=== PATIENT | male | born 1990 | race Caucasian/White ===

== ENCOUNTER 2017-12-30 00:10 | Emergency (ER) | payer OTHER, SELFPAY ==
[2017-12-30 00:11] VITALS: BP 154/71; PULSE 69; RESP 15; TEMP 36.6; BMI 28.1
--- NOTE | 2017-12-30 00:26 | ED.DCSUM_ITS ---
- ER Visit Summary Date of Service: 12/30/17 Chief Complaint: Right hand laceration History of Present Illness: The patient is a 27 M [id number] and tetanus up-to-date within the last 5 years. No significant past medical history no prior surgery to his right hand. Patient was opening a wine bottle and was pushing the court into the wine bottle when the neck of the bottle shattered and he cut his right hand on the bottle. Denies any numbness. He has normal range of motion. Denies any other injuries. Physical Examination: Well-appearing young male. Vital signs are stable afebrile. H EENT exam unremarkable. Lungs clear to auscultation bilaterally. Heart regular rate and rhythm no murmur. Otherwise exam unremarkable except the right hand is a laceration of the palmar aspect of the right hand on the ulnar side. Currently bleeding is controlled but he has dried blood all over the hand. He also has a laceration on the dorsum of the right small finger near the DIP joint. He has full flexion-extension all digits of the right hand. He has normal touch sensation. There are no obvious tendon injuries. I do not feel any broken glass and I will explore both wounds thoroughly. There are no bony deformities. Test Results: None Emergency Department Course and Treatment: Procedure note: Right hand lacerations. Both wounds were cleaned thoroughly. Rosaura and then washed and explored. Both were locally anesthetized with 1% lidocaine. Both wounds were explored and I did not feel any pieces of glass or other foreign body. Right ulnar side palm laceration was 3 cm. Had a superficial arterial bleed. Washed and explored. Closed using 5 4-0 Ethilon simple interrupted sutures. Proper hemostasis wound closure was obtained. On reexamination there was no expanding hematoma. Right small finger laceration of the DIP joint. Involve the skin superficial subcutaneous tissue. Did not seem to involve the joint. No foreign bodies noted. Washed and explored. Closed using 3 simple interrupted 4-0 Ethilon sutures. Proper hemostasis wound closure was obtained. Patient was instructed on wound care and suture removal. Treatment Plan: Wound care. Suture removal in 10 days. Return if any signs of infection or expanding hematoma. Disposition: Discharge Impression: Right palm 3 cm laceration with ER repair. Right small finger DIP 2 cm laceration with ER repair. This note was generated with [employer] software. It may contain incorrect words, spelling, and punctuation that were not noted in review of the chart prior to signing ED Disposition - Plan for ED Patient: Chief Complaint: Laceration
--- NOTE | 2017-12-30 00:55 | ED.DEP ---
ED Disposition - Plan for ED Patient: Disposition: Home or Assisted Living Chief Complaint: Laceration Instructions: ED Laceration Hand Referrals: Saman Rees MD [STAFF PHYSICIAN] - 10 Day for suture removal Additional Instructions: Keep wound clean and dry. No soaking in dirty water. May rinse off daily with soap and water or peroxide and water. Apply antibiotic ointment to both lacerations daily. Watch for any signs of infection or significant swelling is seen return. Ice and elevate the right hand. Tylenol and/or Motrin for pain. Suture removal in 10 days.
[2017-12-30 01:05] VITALS: BP 125/72; PULSE 60; RESP 16; O2SAT 96
== END 2017-12-30 01:06 | disposition home or self-care (01) ==
PROVIDERS: Emergency Provider Emergency Medicine
DX: S61.411A Laceration without foreign body of right hand, initial encounter (principal); W25.XXXA Contact with sharp glass, initial encounter; Y93.9 Activity, unspecified; Y92.9 Unspecified place or not applicable; Y99.9 Unspecified external cause status
CPT/HCPCS: 12002; 99284